=== PATIENT | female | born 1980 | race African-American/Black ===

== ENCOUNTER 2016-10-08 17:00 | Observation (INO) | payer MEDICAID, OTHER ==
[~2016-10-08] VITALS: Ht 167.6 cm; Wt 175.0 kg
[~2016-10-08 17:00] MED LIST: AUGM875T PO; BACL10TA PO; DICY10CA13 PO; LISI-586 PO; MMW SS; MOBI15TA PO; PRED50 PO; SERO25TA OR; VIST25CA PO
[2016-10-08 17:02] VITALS: BP 180/100; PULSE 86; RESP 24; TEMP 98.2; O2SAT 100
[2016-10-08 17:52] LABS: AUTOMATED NEUTROPHIL # 7.6 TH/MM3 (1.8-7.7); BASOPHIL % 0.2 % (0.0-2.0); EOSINOPHIL # 0.2 TH/MM3 (0-0.4); EOSINOPHIL % 1.4 % (0.0-4.0); LYMPH % 31.4 % (9.0-44.0); LYMPHOCYTE # 3.9 TH/MM3 (1.0-4.8); MEAN CELL VOLUME 58.9 FL (80.0-100.0); MEAN CORPUSCULAR HEMOGLOBIN 18.8 PG (27.0-34.0); MONO % 5.7 % (0.0-8.0); NEUT % 61.3 % (16.0-70.0); PLATELET COUNT 437 TH/MM3 (150-450); RED BLOOD COUNT 5.09 MIL/MM3 (4.00-5.30); RED CELL DISTRIBUTION WIDTH 20.3 % (11.6-17.2); WHITE BLOOD COUNT 12.3 TH/MM3 (4.0-11.0)
[2016-10-08 17:57] LABS: HEMO FLAGS AUTO DIFF
[2016-10-08 18:15] LABS: ANION GAP 9 MEQ/L (5-15); BICARBONATE 29.8 MEQ/L (21.0-32.0); BLOOD UREA NITROGEN 8 MG/DL (7-18); CHLORIDE 99 MEQ/L (98-107); GLOMERULAR FILTRATION RATE 113 ML/MIN (>89); POTASSIUM 3.6 MEQ/L (3.5-5.1); SODIUM (NA) 138 MEQ/L (136-145)
[2016-10-08 18:21] LABS: CREATINE KINASE 55 U/L (26-192)
[2016-10-08 18:55] LABS: PLATELET ESTIMATE SMEAR HIGH (NORMAL)
[2016-10-08 18:56] LABS: PLATELET MORPHOLOGY NORMAL (NORMAL); SCAN/DIFF AUTO DIFF CONFIRMED
[2016-10-08 19:27] VITALS: BP 121/82; PULSE 80; RESP 18; O2SAT 100
[2016-10-08] MEDS ORDERED: ASPIRIN 81 MG CHEW TAB CHEW ONE (19:45)
[2016-10-08] MEDS ORDERED: MORPHINE SULFATE 4 MG/ML INJ IV PUSH ONE (19:45)
--- NOTE | 2016-10-08 20:07 | RADRPT ---
EXAM DATE/TIME: 10/08/2016 19:55 [facility] COMPARISON: No previous studies available for comparison. INDICATIONS : Shortness of breath. MEDICAL HISTORY : None. SURGICAL HISTORY : None. ENCOUNTER: Initial ACUITY: 3 days PAIN SCORE: 0/10 LOCATION: Bilateral chest FINDINGS: PA and lateral views of the chest demonstrate the lungs to be symmetrically aerated without evidence of mass, infiltrate or effusion. The cardiomediastinal contours are unremarkable. Osseous structure s are intact. CONCLUSION: No acute disease. Pete Niño MD on October 08, 2016 at 20:05 Board Certified Radiologist. This report was verified electronically.
[2016-10-08] MEDS ORDERED: IOHEXOL 350 MG/ML 10 ML VIAL (for RAD DIAG) IV ONE (21:39)
--- NOTE | 2016-10-08 22:10 | RADRPT ---
EXAM DATE/TIME: 10/08/2016 21:29 [facility] COMPARISON: No previous studies available for comparison. INDICATIONS : Chest pain, shortness of breath and dizziness. IV CONTRAST: 75 cc Omnipaque 350 (iohexol) IV RADIATION DOSE: 25.66 CTDIvol (mGy) MEDICAL HISTORY : None SURGICAL HISTORY : Cholecystectomy. Tubal ligation. ENCOUNTER: Initial ACUITY: 1 day PAIN SCALE: 5/10 LOCATION: Left chest TECHNIQUE: Volumetric scanning of the chest was performed using a pulmonary embolism protocol MIP images were re constructed. Using automated exposure control and adjustment of the mA and/or kV according to patien t size, radiation dose was kept as low as reasonably achievable to obtain optimal diagnostic quality images. FINDINGS: PULMONARY ARTERIES: No filling defects are seen in the pulmonary arteries through the segmental level. LUNGS: There is no consolidation or pneumothorax . No concerning pulmonary nodule is visualized. PLEURAE: There is no pleural thickening or pleural effusion. MEDIASTINUM: There is good visualization of the great vessels of the middle mediastinum. No evidence of mediastin al or hilar adenopathy/mass. MUSCULOSKELETAL: Within normal limits for patient age. MISCELLANEOUS: The visualized upper abdominal organs demonstrate no acute abnormality. CONCLUSION: 1. Negative for pulmonary embolus. Previous cholecystectomy. No acute findings. Tyler Dillon MD on October 08, 2016 at 22:06 Board Certified Radiologist. This report was verified electronically.
[2016-10-08] MEDS ORDERED: SODIUM CHLORIDE 0.9% FLUSH 10 ML FLUSH IV FLUSH PRN (22:30)
[2016-10-08] MEDS ORDERED: ACETAMINOPHEN/HYDROcodone 325 MG/7.5 MG TAB PO PRN (22:30)
[2016-10-08] MEDS ORDERED: ACETAMINOPHEN 500 MG CPLT PO PRN (22:30)
[2016-10-08] MEDS ORDERED: ONDANSETRON HCL 4 MG/2 ML VIAL IV PRN (22:30)
[2016-10-08 22:31] VITALS: O2SAT 100
--- NOTE | 2016-10-08 22:53 | PD ---
HPI Chief Complaint: Chest Pain Time Seen by Provider: 19:26 Travel History International Travel<30 days: No Contact w/Intl Traveler<30days: No Traveled to known affect area: No History of Present Illness HPI Patient is a 36-year-old female comes in complaining of chest pain. She says the pain is been going on for the past 2 days. She says the pain comes on with exertion and improves with rest. The patient is a left-sided. She reports some shortness of breath and nausea with this. She denies cough, fevers, chills. PFSH Past Medical History Arthritis: No Asthma: No Autoimmune Disease: No Anxiety: Yes Depression: Yes Heart Rhythm Problems: No Cancer: No Cardiovascular Problems: No High Cholesterol: No Chemotherapy: No Chest Pain: No Congestive Heart Failure: No COPD: No Cerebrovascular Accident: No Diabetes: No Endocrine: No Gastrointestinal Disorders: No GERD: No Genitourinary: No Headaches: No Hiatal Hernia: No Heparin Induced Thrombocytopen: No Hypertension: No Immune Disorder: No Implanted Vascular Access Dvce: No Musculoskeletal: No Neurologic: No Psychiatric: No Reproductive: No Respiratory: No Immunizations Current: Yes Migraines: No Pancreatitis: Yes Radiation Therapy: No Renal Failure: No Seizures: No Sickle Cell Disease: No Sleep Apnea: No Thyroid Disease: No Ulcer: No Tetanus Vaccination: < 5 Years Influenza Vaccination: Yes ?: Not LMP: 09/17/2016 : 3 Para: 3 Miscarriage: 0 : 0 Tubal Ligation: Yes Past Surgical History Abdominal Surgery: No AICD: No Arteriovenous Shunt: No Cardiac Surgery: No Section: Yes (X1) Cholecystectomy: Yes Ear Surgery: No Endocrine Surgery: No Eye Surgery: No Genitourinary Surgery: No Gynecologic Surgery: Yes (C SECTION AND TUBAL) Insulin Pump: No Joint Replacement: No Neurologic Surgery: No Oral Surgery: No Pacemaker: No Thoracic Surgery: No Other Surgery: Yes (GALLBLADDER) Social History Alcohol Use: Yes (socially) Tobacco Use: No Substance Use: No Allergies-Medications (Allergen,Severity, Reaction): Coded Allergies: No Known Allergies (Verified , 10/08/16) Reported Meds & Prescriptions Reported Meds & Active Scripts Active Magic Mouthwash-Diphenhy Formula (Lidocaine/Diphenhydr/Alum/Mg/Simeth) Ml 5 Ml SS Q3 PRN MAGIC MOUTHWASH=MIX 1/3 VISCOUS LIDOCAINE(80 ML), 1/3 MAALOX(80 ML),AND 1/3 BENADRYL(80 ML) TO EQUAL 240 ML TOTAL VOLUME. Review of Systems Except as stated in HPI: all other systems reviewed are Neg General / Constitutional: No: Fever, Chills HENT: No: Headaches, Lightheadedness Cardiovascular: Positive: Chest Pain or Discomfort Respiratory: Positive: Shortness of Breath, No: Cough Gastrointestinal: Positive: Nausea, No: Vomiting Musculoskeletal: No: Myalgias Skin: No Change in Pigmentation Neurologic: Positive: Dizziness, No: Weakness Physical Exam Narrative GENERAL: Awake and alert, in no acute distress. SKIN: Focused skin assessment warm/dry. HEAD: Atraumatic. Normocephalic. EYES: Pupils equal and round. No scleral icterus. ENT: Mucous membranes pink and moist. NECK: Trachea midline. No JVD. CARDIOVASCULAR: Regular rate and rhythm. No murmur appreciated. RESPIRATORY: No accessory muscle use. Clear to auscultation. Breath sounds equal bilaterally. GASTROINTESTINAL: Abdomen soft, non-tender, nondistended. MUSCULOSKELETAL: No obvious deformities. No clubbing. No cyanosis. No edema. NEUROLOGICAL: Awake and alert. No obvious cranial nerve deficits. Motor grossly within normal limits. Normal speech. PSYCHIATRIC: Appropriate mood and affect; insight and judgment normal. Data Data Last Documented VS Vital Signs Date Time Temp Pulse Resp B/P Pulse Ox O2 Delivery O2 Flow Rate FiO2 10/08/16 20:45 16 10/08/16 19:27 85 97 Room Air 10/08/16 19:27 121/82 10/08/16 17:02 98.2 Orders Electrocardiogram (10/08/16 17:07) Complete Blood Count With Diff (10/08/16 17:07) Basic Metabolic Panel (Bmp) (10/08/16 17:07) Ckmb (Isoenzyme) Profile (10/08/16 17:07) Troponin I (10/08/16 17:07) D-Dimer (10/08/16 19:43) Chest, Pa & Lat (10/08/16 ) Aspirin Chew (Aspirin Chew) (10/08/16 19:45) Morphine Inj (Morphine Inj) (10/08/16 19:45) Iv Access Insert/Monitor (10/08/16 19:43) Ed Urine Pregnancytest Poc (10/08/16 19:43) Ct Pulmonary Angiogram (10/08/16 21:09) Iohexol 350 Inj (Omnipaque 350 Inj) (10/08/16 21:39) Activity Bed Rest With Brp (10/08/16 22:27) Vital Signs (Adult) Q4H (10/08/16 22:27) Cardiac Rhythm .As Directed (10/08/16 22:27) ^ Notify Dr: Other .PRN (10/08/16 22:27) ^ Notify Dr. Parameters (10/08/16 22:27) Resp Oxygen Nasal Cannula (10/08/16 ) Diet Heart Healthy (10/09/16 Breakfast) Ckmb (Isoenzyme) Profile (10/08/16 22:27) Ckmb (Isoenzyme) Profile (10/09/16 01:27) Troponin I (10/08/16 22:27) Troponin I (10/09/16 01:27) Electrocardiogram (10/08/16 22:27) Electrocardiogram (10/09/16 01:27) ^ Obtain (10/08/16 22:27) Sodium Chloride 0.9% Flush (Ns Flush) (10/08/16 22:30) Sodium Chloride 0.9% Flush (Ns Flush) (10/09/16 09:00) Acetaminophen (Tylenol) (10/08/16 22:30) Acetamin-Hydrocod 325-7.5 Mg (Regent 7.5 (10/08/16 22:30) Ondansetron Inj (Zofran Inj) (10/08/16 22:30) [employer]aster / Telemetry DAYRON.Q8H (10/08/16 22:27) Admit Order (Ed Use Only) (10/08/16 ) Labs Laboratory Tests Test 10/08/16 10/08/16 17:19 20:15 White Blood Count 12.3 TH/MM3 Red Blood Count 5.09 MIL/MM3 Hemoglobin 9.6 GM/DL Hematocrit 30.0 % Mean Corpuscular Volume 58.9 FL Mean Corpuscular Hemoglobin 18.8 PG Mean Corpuscular Hemoglobin 32.0 % Concent Red Cell Distribution Width 20.3 % Platelet Count 437 TH/MM3 Mean Platelet Volume 8.7 FL Neutrophils (%) (Auto) 61.3 % Lymphocytes (%) (Auto) 31.4 % Monocytes (%) (Auto) 5.7 % Eosinophils (%) (Auto) 1.4 % Basophils (%) (Auto) 0.2 % Neutrophils # (Auto) 7.6 TH/MM3 Lymphocytes # (Auto) 3.9 TH/MM3 Monocytes # (Auto) 0.7 TH/MM3 Eosinophils # (Auto) 0.2 TH/MM3 Basophils # (Auto) 0.0 TH/MM3 CBC Comment AUTO DIFF Differential Comment AUTO DIFF CONFIRMED Platelet Estimate HIGH Platelet Morphology Comment NORMAL Sodium Level 138 MEQ/L Potassium Level 3.6 MEQ/L Chloride Level 99 MEQ/L Carbon Dioxide Level 29.8 MEQ/L Anion Gap 9 MEQ/L Blood Urea Nitrogen 8 MG/DL Creatinine 0.71 MG/DL Estimat Glomerular Filtration 113 ML/MIN Rate Random Glucose 192 MG/DL Calcium Level 8.8 MG/DL Total Creatine Kinase 55 U/L Troponin I LESS THAN 0.02 NG/ML D-Dimer Quantitative (PE/DVT) 1.44 MG/L [facility] Medical Decision Making Medical Screen Exam Complete: Yes Emergency Medical Condition: Yes Medical Record Reviewed: Yes Interpretation(s) ECG shows normal sinus rhythm, no ST elevation or depression, normal intervals. Differential Diagnosis ACS versus NSTEMI versus STEMI versus pneumonia versus PE Narrative Course Patient is a 36-year-old female comes in complaining of chest pain. Exam shows no acute abnormalities. IV established, labs sent. Patient connected to cardiac cath tech. Labs concerning for an elevated d-dimer and elevated glucose CT of the chest performed shows no evidence of PE. Chest x-ray shows no acute abnormalities. Patient given aspirin. Patient informed about her elevated glucose that she may now have diabetes. Placed in chest pain center for further management. Diagnosis Primary Impression: Chest pain Qualified Code: R07.9 - Chest pain, unspecified type Admitting Information Admitting Physician Requests: Observation Alona Harmon MD Oct 08, 2016 22:52
[2016-10-08 23:13] VITALS: BP 128/82; PULSE 87; RESP 16; O2SAT 99
[2016-10-08 23:30] LABS: CREATINE KINASE 54 U/L (26-192)
[2016-10-09 00:28] VITALS: BP 147/78; PULSE 79; RESP 18; TEMP 97.8; O2SAT 96
[2016-10-09 02:00] VITALS: PULSE 73
[2016-10-09 02:45] LABS: CREATINE KINASE 53 U/L (26-192)
[2016-10-09 04:29] VITALS: BP 117/71; PULSE 79; RESP 18; RESP 20; TEMP 97.4; O2SAT 98
[2016-10-09 07:34] VITALS: BP 130/77; PULSE 77; RESP 19; TEMP 98.4; O2SAT 98
--- NOTE | 2016-10-09 08:14 | HHI.HP ---
[facility] Primary Care Physician Ruy Trammell MD Chief Complaint chest pain History of Present Illness This is a 36-year-old female that presents to ED via private vehicle with complaint of 3 days of intermittent chest discomfort across her chest. She states sometimes it occurs while she talks. Sometimes it is brought on when she takes a deep breath. Sometimes brought on when she certainly movements. Last 30 minutes to an hour. No nausea or diaphoresis but at times has been short of breath. Denies history of CAD. States she has history of hypertension and takes lisinopril sometimes. Denies diabetes. Denies recent illnesses. Denies . Review of Systems General: Patient denies fevers, chills recent, and recent travel HEENT: Patient denies headache, sore throat, difficulty swallowing. Cardiovascular: Has the chest discomfort as mentioned above. Denies sensation of heart beating rapidly or irregularly. No syncope. Respiratory: Patient was shortness of breath and had inspirational chest discomfort. Denies coughing wheezing or hemoptysis. GI: Patient denies nausea, vomiting, diarrhea, abdominal pain, bloody stools. Musculoskeletal: Patient denies joint pain or edema. Denies calf pain or edema. Neurovascular: Patient denies numbness, tingling, weakness in extremities. Denies headache. Endocrine: Denies polyuria and polydipsia. Hematologic: Denies easy bruising. Skin: Denies rash or itching. Past Family Social History Allergies: Coded Allergies: No Known Allergies (Verified , 10/08/16) Past Medical History Hypertension. Denies hyperlipidemia diabetes and known CAD. Past Surgical History and tubal ligation. Cholecystectomy. Reported Medications Reported Meds & Active Scripts Active Magic Mouthwash-Diphenhy Formula (Lidocaine/Diphenhydr/Alum/Mg/Simeth) Ml 5 Ml SS Q3 PRN MAGIC MOUTHWASH=MIX 1/3 VISCOUS LIDOCAINE(80 ML), 1/3 MAALOX(80 ML),AND 1/3 BENADRYL(80 ML) TO EQUAL 240 ML TOTAL VOLUME. Active Ordered Medications Current Medications Medications (Trade) Dose Ordered Sig/Misti Route Start Time Stop Time Status Last Admin (NS Flush) 2 ml UNSCH PRN IV FLUSH 10/08/16 22:30 (NS Flush) 2 ml BID IV FLUSH 10/09/16 09:00 (Tylenol) 500 mg Q4H PRN PO 10/08/16 22:30 ([place] 7.5-325 Mg) 1 tab Q4H PRN PO 10/08/16 22:30 10/09/16 00:43 (Zofran Inj) 4 mg Q6H PRN IV 10/08/16 22:30 Family History Denies family history of CAD. Social History Patient is a nonsmoker. Denies illicit drugs. Has occasional alcohol. Physical Exam Vital Signs Vital Signs Date Time Temp Pulse Resp B/P Pulse Ox O2 Delivery O2 Flow Rate FiO2 10/09/16 07:34 98.4 77 19 130/77 98 10/09/16 04:29 97.4 79 20 117/71 98 10/09/16 02:00 73 10/09/16 00:28 97.8 79 18 147/78 96 10/08/16 23:13 87 16 128/82 99 Room Air 10/08/16 22:31 100 10/08/16 20:45 16 10/08/16 19:27 85 18 97 Room Air 10/08/16 19:27 80 18 121/82 100 Room Air 10/08/16 17:02 98.2 86 24 180/100 100 Room Air Physical Exam GENERAL: This is a well-nourished, well-developed patient, in no apparent distress. Patient speaks in clear complete sentences. Patient is pleasant. Patient is obese at 175 kg. HEENT: Head is atraumatic and normocephalic. Neck is supple without lymphadenopathy and trachea is midline. No JVD or carotid bruits. CARDIOVASCULAR: Regular rate and rhythm without murmurs, gallops, or rubs. RESPIRATORY: There is chest wall tenderness on palpating throughout the anterior chest wall. Clear to auscultation. Breath sounds equal bilaterally. No wheezes, rales, or rhonchi. No use of accessory muscles. GASTROINTESTINAL: Abdomen is nontender, nondistended. Abdomen soft. No obvious pulsatile mass or bruit. No CVA tenderness. Strong femoral pulses bilaterally. Normal bowel sounds in all quadrants. MUSCULOSKELETAL: Patient is moving upper and lower extremities freely. No calf tenderness or edema, no Homans sign. Strong pulses in upper and lower extremities. NEUROLOGICAL: Patient is alert and oriented. Cranial nerves 2-12 are grossly intact. No focal deficits and speech is clear. SKIN: No rash and turgor is normal. Laboratory Laboratory Tests Test 10/08/16 10/08/16 10/08/16 10/09/16 17:19 20:15 23:00 02:11 White Blood Count 12.3 Red Blood Count 5.09 Hemoglobin 9.6 Hematocrit 30.0 Mean Corpuscular Volume 58.9 Mean Corpuscular Hemoglobin 18.8 Mean Corpuscular Hemoglobin 32.0 Concent Red Cell Distribution Width 20.3 Platelet Count 437 Mean Platelet Volume 8.7 Neutrophils (%) (Auto) 61.3 Lymphocytes (%) (Auto) 31.4 Monocytes (%) (Auto) 5.7 Eosinophils (%) (Auto) 1.4 Basophils (%) (Auto) 0.2 Neutrophils # (Auto) 7.6 Lymphocytes # (Auto) 3.9 Monocytes # (Auto) 0.7 Eosinophils # (Auto) 0.2 Basophils # (Auto) 0.0 CBC Comment AUTO DIFF Differential Comment AUTO DIFF CONFIRMED Platelet Estimate HIGH Platelet Morphology Comment NORMAL Sodium Level 138 Potassium Level 3.6 Chloride Level 99 Carbon Dioxide Level 29.8 Anion Gap 9 Blood Urea Nitrogen 8 Creatinine 0.71 Estimat Glomerular Filtration 113 Rate Random Glucose 192 Calcium Level 8.8 Total Creatine Kinase 55 54 53 Troponin I LESS THAN 0.02 LESS THAN 0.02 LESS THAN 0.02 D-Dimer Quantitative (PE/DVT) 1.44 Result Diagram: 10/08/16171810/08/161718 Imaging Last [address] Angiography 10/08/162108 Signed Impressions: Service Date/Time: Saturday, October 08, 2016 21:29 - CONCLUSION: 1. Negative for pulmonary embolus. Previous cholecystectomy. No acute findings. Tyler Dillon MD Course EKGs have been sinus rhythm without significant ST segment depressions or elevations. Assessment and Plan Assessment and Plan * Atypical chest pain: Patient has had serial cardiac enzymes and EKGs for ruling out purposes. She has been seen by Dr. Quang Garza of cardiology in the chest pain center and will undergo a Lexiscan myocardial perfusion stress test. She will likely be discharged home if her stress test were to be nonischemic. * Anemia: Patient needs further follow-up with her physician regarding this. * Hypertension: We'll resume her lisinopril. * Obesity: Patient has been counseled on the importance of diet, excise, and weight loss. Jhon Guevara Oct 09, 2016 08:13
[2016-10-09 08:54] VITALS: O2SAT 99
[2016-10-09] MEDS ORDERED: SODIUM CHLORIDE 0.9% FLUSH 10 ML FLUSH IV FLUSH SCH (09:00)
[2016-10-09 10:54] VITALS: PULSE 75
[2016-10-09] MEDS ORDERED: LISI10TA PO (11:38)
[2016-10-09] MEDS ORDERED: REGADENOSON INJ 0.4 MG/5 ML SYR ONE (12:32)
--- NOTE | 2016-10-09 13:42 | EKG ---
Date Performed: 10/09/2016 Time Performed: 02:13:04 PTAGE: 36 years EKG: Sinus rhythm NORMAL ECG PREVIOUS TRACING : 10/08/2016 23.07 Since previous tracing, no significant change noted DOCTOR: Quang Garza Interpretating Date/Time 10/09/2016 13:42:16
--- NOTE | 2016-10-09 13:45 | EKG ---
Date Performed: 10/08/2016 Time Performed: 23:07:40 PTAGE: 36 years EKG: Sinus rhythm NONSPECIFIC T-WAVE ABNORMALITY BORDERLINE ECG PREVIOUS TRACING : 10/08/2016 17.15 Since previous tracing, no significant change noted DOCTOR: Quang Garza Interpretating Date/Time 10/09/2016 13:43:47
--- NOTE | 2016-10-09 13:46 | EKG ---
Date Performed: 10/08/2016 Time Performed: 17:15:29 PTAGE: 36 years EKG: Sinus rhythm NORMAL ECG PREVIOUS TRACING : 02/05/2010 00.24 Since previous tracing, no significant change noted DOCTOR: Quang Garza Interpretating Date/Time 10/09/2016 13:45:17
--- NOTE | 2016-10-09 13:48 | TR ---
Date Performed: 10/09/2016 Time Performed: 12:32:10 DOCTOR: Quang Garza DRUG LIST: CLINICAL HISTORY: REASON FOR TEST: REASON FOR ENDING: OBSERVATION: CONCLUSION: Lexiscan stress test was performed under standard four minute protocol. Radionuclid e was injected one minute prior to ending the test. No electrocardiographic abormalities were present to suggest ischemia. Nuclear imaging and interpretation are pending. COMMENTS:
--- NOTE | 2016-10-09 14:10 | RADRPT ---
EXAM DATE/TIME: 10/09/2016 11:59 [facility] COMPARISON: No previous studies available for comparison. INDICATIONS : Left sided chest pain with shortness of breath and nausea for two days. Angina. DOSE: 35 mCi Tc99m Myoview at stress. 11 mCi Tc99m Myoview at rest. 0.4 mg Lexiscan STRESS SYMPTOMS: Heart racing. EJECTION FRACTION: 60% MEDICAL HISTORY : Hypertension. SURGICAL HISTORY : section. Cholecystectomy. Tubal ligation. ENCOUNTER: Initial ACUITY: 2 days PAIN SCALE: 8/10 LOCATION: Left chest TECHNIQUE: The patient underwent pharmacologic stress with infusion of prescribed dose. Continuous ECG tracing was monitored during stress. Gated SPECT imaging was performed after stress and conventional SPECT i maging was performed at rest. The examination was performed on a SPECT/CT scanner, both attenuation and non-corrected datasets were reviewed. FINDINGS: DISTRIBUTION: The maximum perfused segment at stress is in the inferior wall. PERFUSION STUDY: There is prominent breast attenuation anterior lateral, similar between stress and rest. The pattern of perfusion in the left ventricle is unchanged between stress and rest without evidence of redistri bution. The ventricular size is dilated. GATED STUDY: There is intact wall motion and thickening without hypokinetic or dyskinetic segments. CONCLUSION: 1. No evidence of stress-induced ischemia. 2. Typed wall motion 60% ejection fraction. RISK CATEGORY: Low (<1% Annual Mortality Rate) Sascha Pressley MD on October 09, 2016 at 13:57 Board Certified Radiologist. This report was verified electronically.
--- NOTE | 2016-10-09 14:17 | HHI.DCPOC ---
Discharge Care Plan Diagnosis: (1) Chest pain (2) HTN (hypertension) (3) Obesity Goals to Promote Your Health * To prevent worsening of your condition and complications * To maintain your health at the optimal level Directions to Meet Your Goals Take your medications as prescribed Follow your dietary instruction Follow activity as directed Keep your appointments as scheduled Take your immunizations and boosters as scheduled If your symptoms worsen call your PCP, if no PCP go to Urgent Care Center or Emergency Room Smoking is Dangerous to Your Health. Avoid second hand smoke Call the 24-hour hour crisis hotline for domestic abuse at Jhon Guevara Oct 09, 2016 14:17
[2016-10-10] MEDS ORDERED: LISINOPRIL 10 MG TAB PO SCH (09:00)
[2016-10-10] MEDS ORDERED: HYDROCHLOROTHIAZIDE 12.5 MG CAP PO SCH (09:00)
== END 2016-10-09 16:20 | disposition home or self-care (01) ==
LOC: NEPE 17:00 → NEDA 22:29 → NEPHCDU 10-09 00:26
PROVIDERS: ADMIT Internal Medicine Cardiovascular Disease; ATTEND Internal Medicine Cardiovascular Disease
DX: R07.89 Other chest pain (principal); I10 Essential (primary) hypertension; D64.9 Anemia, unspecified; E66.9 Obesity, unspecified; F41.9 Anxiety disorder, unspecified; F32.9 Major depressive disorder, single episode, unspecified; Z68.44 Body mass index [BMI] 60.0-69.9, adult
CPT/HCPCS: 71020; 71275; 78452; 80048; 82550; 84484; 84703; 85025; 85379; 93005; 93017; 96374; 99285; A9502; G0378; J2270; J2785; Q9967

== ENCOUNTER 2017-05-25 12:24 | Emergency (ER) | payer OTHER ==
[~2017-05-25] VITALS: Ht 167.6 cm; Wt 175.0 kg
[~2017-05-25 12:24] MED LIST changes: -AUGM875T PO; -BACL10TA PO; -DICY10CA13 PO; -LISI-586 PO; +LISI10TA PO; -MMW SS; -MOBI15TA PO; -PRED50 PO; -SERO25TA OR; -VIST25CA PO
[2017-05-25 12:26] VITALS: BP 179/106; PULSE 99; RESP 20; TEMP 99.5; O2SAT 96
[2017-05-25] MEDS ORDERED: LURA40 PO (13:12)
--- NOTE | 2017-05-25 13:34 | PD ---
HPI Chief Complaint: Cold / Flu Symptoms Time Seen by Provider: 13:13 Travel History International Travel<30 days: No Contact w/Intl Traveler<30days: No Traveled to known affect area: No History of Present Illness HPI This is a 37-year-old female who presents to the emergency department with 4 days of sore throat, constant, moderate severity, worse with eating and drinking with no associated fevers or chills. She has had a nonproductive cough. She also says she's had polyuria for the past several days with no dysuria. She says her son was sick with a sore throat but had a strep test which was negative. PFSH Past Medical History Arthritis: No Asthma: No Autoimmune Disease: No Anxiety: Yes Depression: Yes Heart Rhythm Problems: No Cancer: No Cardiovascular Problems: Yes High Cholesterol: No Chemotherapy: No Chest Pain: No Congestive Heart Failure: No COPD: No Cerebrovascular Accident: No Diabetes: No Endocrine: No Gastrointestinal Disorders: No GERD: No Genitourinary: No Headaches: No Hiatal Hernia: No Heparin Induced Thrombocytopen: No Hypertension: Yes Immune Disorder: No Implanted Vascular Access Dvce: No Musculoskeletal: No Neurologic: No Psychiatric: No Reproductive: No Respiratory: No Immunizations Current: Yes Migraines: No Pancreatitis: Yes Radiation Therapy: No Renal Failure: No Seizures: No Sickle Cell Disease: No Sleep Apnea: No Thyroid Disease: No Ulcer: No Tetanus Vaccination: > 5 Years ?: Not : 3 Para: 3 Miscarriage: 0 : 0 Tubal Ligation: Yes Past Surgical History Abdominal Surgery: No AICD: No Arteriovenous Shunt: No Cardiac Surgery: No Section: Yes (X1) Cholecystectomy: Yes Ear Surgery: No Endocrine Surgery: No Eye Surgery: No Genitourinary Surgery: No Gynecologic Surgery: Yes (C SECTION AND TUBAL) Insulin Pump: No Joint Replacement: No Neurologic Surgery: No Oral Surgery: No Pacemaker: No Thoracic Surgery: No Other Surgery: Yes (GALLBLADDER) Social History Alcohol Use: Yes (socially) Tobacco Use: No Substance Use: No Allergies-Medications (Allergen,Severity, Reaction): Coded Allergies: No Known Allergies (Verified Adverse Reaction, Unknown, 05/25/17) Reported Meds & Prescriptions Reported Meds & Active Scripts Active Reported Latuda (Lurasidone) 40 Mg Tab 40 Mg PO DAILY Lisinopril-Hctz 10-12.5 Mg Tab 1 Tab PO DAILY Review of Systems Except as stated in HPI: all other systems reviewed are Neg Physical Exam Narrative GENERAL:Well appearing, no acute distress SKIN: Focused skin assessment warm and dry. HEAD: Atraumatic. Normocephalic. EYES: Pupils equal and round. No injection or drainage. ENT: Moderate posterior pharyngeal erythema and edema with tonsillar exudates. No asymmetry or uvular deviation. NECK: Trachea midline. Tender anterior cervical lymphadenopathy. CARDIOVASCULAR: Regular rate and rhythm. No murmur appreciated. RESPIRATORY: Clear to auscultation. Breath sounds equal bilaterally. GASTROINTESTINAL: Abdomen soft, mildly tender to palpation in the suprapubic region with no rebound or guarding. MUSCULOSKELETAL: No obvious deformities. NEUROLOGICAL: Awake and alert. No obvious cranial nerve deficits. Moving all extremities. PSYCHIATRIC: Appropriate mood and affect; insight and judgment normal. Data Data Last Documented VS Vital Signs Date Time Temp Pulse Resp B/P (MAP) Pulse Ox O2 Delivery O2 Flow Rate FiO2 05/25/17 12:26 99.5 99 20 179/106 (130) 96 Orders Orders Urinalysis - C+S If Indicated (05/25/17 13:14) MDM Medical Decision Making Medical Screen Exam Complete: Yes Emergency Medical Condition: Yes Differential Diagnosis Strep pharyngitis, viral pharyngitis, diabetes, urinary tract infection, pyelonephritis, mononucleosis Narrative Course This is a 37 year old female who presents to the emergency department with sore throat. She has tonsillar exudates, erythema and edema on exam. She has no evidence of peritonsillar abscess. Rapid strep will be sent. Patient also has polyuria. Urinalysis will be obtained and a fingerstick glucose will be obtained. Patient should be treated with antibiotics if she is strep positive. Urinalysis should be evaluated in fingerstick blood sugar should be checked. Patient appears well and is appropriate for outpatient management pending results. Mariluz Farr MD May 25, 2017 13:34
[2017-05-25 14:24] LABS: BLOOD, URINE NEG (NEG); COMMENT (UR) CULT NOT INDICATED; CULTURE IF INDICATED CULT NOT INDICATED; GLUCOSE,URINE NEG (NEG); KETONE, URINE NEG (NEG); MUCUS URINE FEW /lpf (OCC); NITRITE,URINE NEG (NEG); SQUAMOUS EPITHELIAL CELL URINE 11 /hpf (0-5); URINE COLOR YELLOW (YELLW/STRAW)
[2017-05-25] MEDS ORDERED: NAPR500T2 PO (14:49)
[2017-05-25] MEDS ORDERED: PHEN1SPR2 PO (14:49)
--- NOTE | 2017-05-25 14:49 | PD ---
Data Data Last Documented VS Vital Signs Date Time Temp Pulse Resp B/P (MAP) Pulse Ox O2 Delivery O2 Flow Rate FiO2 05/25/17 12:26 99.5 99 20 179/106 (130) 96 Orders Orders Urinalysis - C+S If Indicated (05/25/17 13:14) Group A Rapid Strep Screen (05/25/17 13:35) Blood Glucose (05/25/17 13:35) Strep Culture (Group A) (05/25/17 13:50) Labs Laboratory Tests Test 05/25/17 13:50 Urine Color YELLOW Urine Turbidity HAZY Urine pH 6.0 Urine Specific [place] 1.020 Urine Protein TRACE mg/dL Urine Glucose (UA) NEG mg/dL Urine Ketones NEG mg/dL Urine Occult Blood NEG Urine Nitrite NEG Urine Bilirubin NEG Urine Urobilinogen 2.0 MG/DL Urine Leukocyte Esterase LARGE Urine RBC LESS THAN 1 /hpf Urine WBC 1 /hpf Urine Squamous Epithelial Cells 11 /hpf Urine Mucus FEW /lpf Microscopic Urinalysis Comment CULT NOT INDICATED MDM Supervised Visit with ASHUTOSH: No Narrative Course Rapid strep is negative. Patient will be treated empirically for viral pharyngitis. Diagnosis Primary Impression: Viral pharyngitis Patient Instructions: General Instructions Additional Instruction: If you develop severe sore throat, inability to eat or drink or swallow return to the emergency room. Med/Other Pt SpecificInfo: Prescription(s) given Scripts Phenol/Glycerin (Chloraseptic Max [place]) 1.5 %-33 % [place] 1-2 SPR PO Q2HR, #1 BOTTLE Prov: Mariluz Farr MD 05/25/17 Naproxen (Naproxen) 500 Mg Tab 500 MG PO BID Y for PAIN SCALE 4 TO 10, #10 TAB 0 Refills Prov: Mariluz Farr MD 05/25/17 Disposition: 01 DISCHARGE HOME Condition: Stable Mariluz Farr MD May 25, 2017 14:49
== END 2017-05-25 15:00 | disposition home or self-care (01) ==
LOC: NETRI 12:24
DX: J02.8 Acute pharyngitis due to other specified organisms (principal); R05 Cough; I10 Essential (primary) hypertension; F41.9 Anxiety disorder, unspecified; F32.9 Major depressive disorder, single episode, unspecified; Z87.19 Personal history of other diseases of the digestive system; Z79.899 Other long term (current) drug therapy
CPT/HCPCS: 81001; 87081; 87880; 99284